=== PATIENT | male | born 1960 | race Caucasian/White ===

== ENCOUNTER → 2019-05-11 | Outpatient (CLI) | payer BC ==
--- NOTE | 2019-05-11 12:54 | Diagnostic Imaging Report ---
INDICATION: Low-back pain. TIME OF EXAM: 10:30 AM FINDINGS: Curvature and alignment of the lumbar spine is normal. Vertebral body heights are maintained. No acute compression fracture is seen. Multilevel degenerative disc disease is seen with variable disc space narrowing and marginal spurring. There is multilevel facet arthropathy. Calcifications in the right abdomen on the AP view could potentially represent gallstones. IMPRESSION: 1. Significant lumbar spondylosis. No acute bony abnormality is detected. 2. Right abdominal calcifications, perhaps gallstones. Dictated by: Dictated on workstation # [id number]
== END ==
LOC: RAD FS 10:24
PROVIDERS: ATTEND Family Medicine
DX: M47.816 Spondylosis without myelopathy or radiculopathy, lumbar region (principal); M54.40 Lumbago with sciatica, unspecified side
CPT/HCPCS: 72100